=== PATIENT | male | born 1980 | race Hispanic/Latino ===

== ENCOUNTER 2017-11-22 20:12 | Emergency (ER) | payer SELFPAY ==
[~2017-11-22 20:12] MED LIST: ISOVUE-370 76%-LOCM 1 ML ONE
[2017-11-22 21:39] LABS: #Basophils 0.1 thou/uL (0.0-0.2); #Eosinphils 0.4 thou/uL (0.0-0.7); #Monocytes 0.4 thou/uL (0.11-0.59); #Neutrophils 2.4 thou/uL (1.40-6.50); %Basophils 1.1 % (0.0-1.0); %Eosinophils 7.6 % (0.0-10.0); %Lymphocytes 38.6 % (21.0-51.0); %Monocytes 8.1 % (0.0-10.0); %Neutrophils 44.6 % (42.0-75.0); Hemoglobin 15.6 g/dL (14.0-18.0); Mean Corpuscular HGB CONC 34.2 g/dL (32.0-36.0); Mean Corpuscular Hemoglobin 32.1 pg (27.0-31.0); Mean Corpuscular Volume 93.9 fl (80.0-94.0); Mean Platelet Volume 8.3 fL (7.4-10.4); Platelet Count 225 thou/uL (130-400); RBC Distribution Width 11.8 % (11.5-14.5); Red Blood Cell (RBC) Count 4.87 mill/uL (4.70-6.10); White Blood Cell (WBC) Count 5.3 thou/uL (4.8-10.8)
[2017-11-22 21:46] LABS: Bilirubin Negative (Negative); Blood, Urine Negative (Negative); Clarity CLEAR (Clear); Glucose, Urine (Dipstick) Negative (Negative); Leukocyte Negative (Negative); Nitrite Negative (Negative); Protein, Urine (Dipstick) Negative (Neg-Trace); Specific Gravity, Urine 1.023 (1.002-1.036)
[2017-11-22 22:04] LABS: ALT (SGPT) 37 U/L (8-55); AST (SGOT) 47 U/L (5-34); Albumin 4.2 g/dL (3.5-5.0); Alkaline Phosphatase 110 U/L (40-150); Anion Gap 11 mmol/L (10-20); BUN (Urea Nitrogen) 14 mg/dL (8.9-20.6); Bilirubin, Total 0.2 mg/dL (0.2-1.2); Calc. Creatinine Clearance 0 mL/min (70-130); Calcium 9.2 mg/dL (7.8-10.44); Carbon Dioxide 25 mmol/L (22-29); Chloride 107 mmol/L (98-107); Estimated GFR-MDRD 86; Globulin 3.3 g/dL (2.4-3.5); Glucose 108 mg/dL (70-105); Lipase 17 U/L (8-78); Potassium 4.2 mmol/L (3.5-5.1); Protein, Total 7.5 g/dL (6.0-8.3); Sodium 139 mmol/L (136-145)
--- NOTE | 2017-11-23 00:02 | CT ---
CT ABDOMEN AND PELVIS WITH IV CONTRAST: Date: 11/22/17 PROVIDED CLINICAL HISTORY: Right lower quadrant pain. FINDINGS: The visualized lung bases are free of significant opacity. The solid abdominal organs demonstrate an unremarkable CT appearance. There is no bowel dilatation, inflammatory fat stranding, free fluid, or free air apparent. The appen aysha appears normal. The osseous structures demonstrate no concerning lytic or blastic lesions. 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 There is asymmetric fat density within the right inguinal canal that does not represent an inguinal h ernia. There is a 2.7 cm ovoid structure in the right inguinal canal with the spermatic cord and ing uinal vessels terminating in it's vicinity, suspicious for undescended testicle. IMPRESSION: 1. No evidence for an acute process. 2. Findings suspicious for undescended inguinal right testicle. Findings discussed with Dr Rogerio zapata 8:51 am 11/23/2017. POS: [facility]
[2017-11-23] MEDS ORDERED: Ketorolac Tromethamine 30 MG/ML VIAL ONE (00:11)
== END 2017-11-23 01:50 | disposition home or self-care (01) ==
LOC: ERS 20:12 → EEVIPCON 20:12 → ERS 11-23 01:50
DX: K40.90 Unilateral inguinal hernia, without obstruction or gangrene, not specified as recurrent (principal)
CPT/HCPCS: 36415; 74177; 80053; 81003; 83690; 85025; 96361; 96374; J1885